=== PATIENT | male | born 1960 | race Caucasian/White ===

== ENCOUNTER 2020-07-11 18:38 | Observation (INO) ==
[2020-07-11] MEDS ORDERED: NS 0.9% 1000 ml BAG 1,000 ML IV ONE (21:30)
[2020-07-11 21:39] LABS: Hematocrit 45 % (42-52); Hemoglobin 15.5 g/dL (14.0-18.0); Mean Corpuscular HGB Conc 34 g/dL (31-36); Mean Corpuscular Hemoglobin 30 pg (27-31); Mean Corpuscular Volume 88 fL (80-94); Mean Platelet Volume 7.8 fL (7.4-10.4); Platelet Count 169 10^3/uL (150-450); Red Blood Count 5.18 10^6 /uL (4.18-5.48); Red Cell Distribution Width 13 % (10-15); White Blood Count 12.2 10^3/uL (3.5-10.8)
[2020-07-11 21:50] LABS: ABS Basophils 0.1 10^3/ul (0-0.2); ABS Eosinophils 0.2 10^3/ul (0-0.6); ABS Lymphocytes 6.1 10^3/ul (1.0-4.8); ABS Monocytes 0.8 10^3/ul (0-0.8); ABS Neutrophils 5.1 10^3/ul (1.5-7.7); Lymphocyte % 49.5 %; Nucleated Red Blood Cells % 0.1
[2020-07-11 21:56] LABS: Albumin/Globulin Ratio 1.6 (1-3); Calcium 8.6 mg/dL (8.6-10.3); EGFR African American 108.7 (>60); EGFR Non-African American 89.8 (>60); Globulin 2.5 g/dL (2-4); Potassium 3.7 mmol/L (3.5-5.0); Total Bilirubin 0.7 mg/dL (0.2-1.0); Total Protein 6.5 g/dL (6.4-8.9)
[2020-07-11 21:58] LABS: Troponin I 0.01 ng/mL (<0.03)
[2020-07-11 22:09] LABS: INR 1.02 (0.82-1.09)
[2020-07-11] MEDS ORDERED: diPHENhydraMINE IV 50 MG/ML 1 ml VIAL (BENADRYL) IV ONE (22:57)
[2020-07-11] MEDS ORDERED: Iohexol 350 (CONTRAST) 500 ML MDV IV ONE (23:02)
[2020-07-12 00:04] LABS: Urine Appearance Clear; Urine Bilirubin Negative (Negative); Urine Blood Negative (Negative); Urine Color Straw; Urine Glucose Negative (Negative); Urine Ketones Negative (Negative); Urine Nitrite Negative (Negative); Urine Protein Negative (Negative); Urine Specific Gravity 1.029 (1.002-1.030); Urine Urobilinogen Negative (Negative)
[2020-07-12] MEDS ORDERED: Nicotine GUM 4MG FRUIT FLAVOR PO PRN (00:13)
[2020-07-12 01:24] LABS: HDL Cholesterol 29.4 mg/dL
[2020-07-12] MEDS ORDERED: Enoxaparin 40 MG/0.4 ML SYR SUBCUT SCH (06:00)
[2020-07-12] MEDS ORDERED: Perflutren Lipid Microsphere 3 ML VIAL ONE (08:37)
[2020-07-12] MEDS ORDERED: Nicotine PATCH 21 MG/24 HR PATCH TRANSDERM SCH (09:00)
[2020-07-12 09:22] LABS: TSH Ultra Thyroid Stim Horm 1.6 mcIU/mL (0.34-5.60)
[2020-07-12 11:16] VITALS: BP 167/82
== END 2020-07-12 15:20 | disposition home or self-care (01) ==
LOC: ED 18:38 → MEDTELE 18:38
PROVIDERS: ADMIT Student in an Organized Health Care Education/Training Program; ATTEND Pediatrics